=== PATIENT | female | born 1990 | race Caucasian/White ===

== ENCOUNTER 2020-05-22 13:02 | Outpatient (CLI) | payer MEDICAID ==
[~2020-05-22] VITALS: Ht 175.3 cm; Wt 142.9 kg
--- NOTE | 2020-05-22 12:30 | NUR ---
Presents to labor and delivery for non stress test for twins. heart monitors on. Assessment done, questions offered and answered. Dr. Heard notified of twins reactive strip. Orders to dismiss to home. [address] Monitor [address] showed to Dr[address] Heard. States yes looks good for thirty week twins.
[2020-05-22] MEDS ORDERED: PRENATAL TABLET PO (13:16)
[2020-05-22] MEDS ORDERED: ASPIRIN E.C. 8181 MG PO (13:18)
[2020-05-22] MEDS ORDERED: PROBIOTIC BLEN1 EACH PO (13:19)
== END 2020-05-22 20:25 | disposition home or self-care (01) ==
LOC: LDR 13:02 → LDRO 13:02 → LDR 13:54 → LDRO 20:25
DX: O30.93 Multiple gestation, unspecified, third trimester (principal); Z3A.30 30 weeks gestation of pregnancy
CPT/HCPCS: OP

== ENCOUNTER 2020-05-25 12:16 | Outpatient (CLI) | payer MEDICAID ==
[~2020-05-25] VITALS: Ht 175.3 cm; Wt 143.2 kg
--- NOTE | 2020-05-25 11:45 | NUR ---
Patient ambulatory onto unit with grandmother at side. Patient sent over from [facility] office to be evaluated and then sent to [facility] per [facility]. Patient changes into gown. Plan of care discussed with patient. Assessment completed by Shreya REYNA. FHR x1 obtained by this RN in upper midline abdominal area. Unable to obtain continuous FHR x2 with multiple RNs attempting. Patient reports good movement x2 and mild contractions, denies vaginal bleeding or leaking of fluid. IV started in right hand by Kellie REYNA and LR started per physician order. RNs remain at bedside attempted to monitor FHR x2.
[2020-05-25 11:50] VITALS: BP 153/77; PULSE 105; TEMP 98.1
--- NOTE | 2020-05-25 12:15 | NUR ---
on unit. Requested at bedside due to difficulty tracing FHR x2.
[~2020-05-25 12:16] MED LIST: ASPIRIN E.C. 8181 MG PO; PRENATAL TABLET PO; PROBIOTIC BLEN1 EACH PO
[2020-05-25 12:30] VITALS: BP 125/80; PULSE 107
[2020-05-25 14:00] VITALS: BP 136/73; PULSE 103
--- NOTE | 2020-05-25 14:00 | NUR ---
Difficulty tracing baby B due to maternal habitus and movement. RN at bedside adjusting monitor.
--- NOTE | 2020-05-25 14:40 | NUR ---
Difficulty tracing both FHR due to movement and maternal habitus. Multiple RNs at bedside attempting to obtain continuous FHR tracing.
--- NOTE | 2020-05-25 15:15 | NUR ---
Transfer team from [facility] at bedside. Report given to Alisha Espinosa RN. Monitors removed. 1530 - IV to saline lock. Pt moved self to stretcher with belongings. Pt off unit at this time.
== END 2020-05-25 15:30 | disposition short-term general hospital (02) ==
LOC: LDRO 12:16 → LDR 12:29 → LDRO 15:30
DX: O36.8330 Maternal care for abnormalities of the fetal heart rate or rhythm, third trimester, not applicable or unspecified (principal); Z3A.30 30 weeks gestation of pregnancy
CPT/HCPCS: OP; J0702; J7120